=== PATIENT | female | born 1990 | race Caucasian/White ===

== ENCOUNTER 2024-11-18 02:09 | Emergency (ER) | payer SELFPAY ==
[2024-11-18 03:50] LABS: Absolute Lymphocytes (CBC) 1.1 K/uL (0.7-4.9); Hematocrit 40.5 % (36.0-45.0); Hemoglobin 13.8 g/dL (12.0-15.0); MCH 33.2 pg (27.0-35.0); MCHC 34.2 g/dL (32.0-36.0); MCV 97.0 fL (80-100); MPV 7.7 fL (7.6-11.3); Nucleated RBC Absolute Count 0.0 (0-0); Nucleated Red Blood Cells % 0.0 % (0-0); RBC Red Blood Cell Count 4.17 M/uL (3.86-4.86); White Blood Count 12.20 thou/uL (4.3-10.9)
[2024-11-18 04:01] LABS: PT Prothrombin Time 11.8 SECONDS (10-13.0); PTT, Activated Partial Thromb 26.0 SECONDS (27.2-37.4); Protime INR 1.05
[2024-11-18 04:11] LABS: ALT/SGPT 27 U/L (13-56); AST/SGOT 17 U/L (15-37); Albumin 4.2 g/dL (3.4-5.0); Albumin/Globulin Ratio 1.2 (1.1-1.8); Alkaline Phosphatase 55 U/L (45-117); Anion Gap 7.9 mEq/L (5.0-15.0); BUN Blood Urea Nitrogen 12 mg/dL (7-18); Bilirubin Indirect, Calculated 0.3 mg/dL (0.2-0.8); Globulin 3.5 g/dL (2.3-3.5); Glucose Level 111 mg/dL (74-106); Potassium 3.9 mEq/L (3.5-5.1)
--- NOTE | 2024-11-18 05:41 | EDPHYS ---
Physician Documentation [facility] Name: Jazmine Ibrahim Age: 34 yrs Sex: Female : 1990 Arrival Date: 11/18/2024 Time: 02:09 Bed 14 Private MD: ED Physician Rusty De REPORTING ANALYST: 11/18 02:58 LMP 11/13/2024, unknown ss12 Historical: - Allergies: 02:53 No Known Allergies; ss12 - Immunization history:: Adult Immunizations unknown. - Infectious Disease History:: Denies. - Social history:: Smoking status: Patient reports the use of cigarette tobacco products, unknown. ROS: 04:06 Constitutional: negative for fever. Cardiovascular: negative for chest pain. tt7 Respiratory: negative for shortness of breath. Abdomen/GI: negative for abdominal pain, nausea, vomiting, diarrhea. MS/Extremity: negative for injury and deformity. Skin: negative for rash. Neuro: negative for focal weakness. Exam: 04:21 Constitutional: vital signs reviewed, well appearing. Head/Face: normocephalic, tt7 atraumatic. Eyes: no conjunctival injection, anicteric sclerae, PERRL. ENT: mucus membranes moist. Neck: trachea midline, no JVD, no meningismus. Chest/axilla: normal chest wall appearance and motion, nontender, no crepitus. Cardiovascular: Tachycardic, regular rhythm, no murmurs, no rubs, no lower extremity edema. Respiratory: normal respiratory effort, no accessory muscle use, lungs CTAB. Abdomen/GI: Nondistended Back: normal ROM. Skin: warm, dry, intact, normal turgor, normal color, no rash. MS/ Extremity: normal ROM of extremities, no gross deformities. Neuro: alert and oriented with appropriate mental status, normal speech, follows commands, no focal neurologic deficits. 04:21 Psych: Behavior/mood is anxious, Affect is Normal. Oriented to person, place, time, Patient has no thoughts/intents to harm self or others. Memory is normal. Delusions/hallucinations are not present. Vital Signs: 02:12 BP 142 / 104; Pulse 119; Resp 22; Temp 97.9(TE); Pulse Ox 100% on R/A; ss12 03:00 BP 114 / 76; Pulse 76; Resp 17; Pulse Ox 99% on R/A; tb4 04:00 BP 120 / 87; Pulse 72; Resp 16; Pulse Ox 99% on R/A; Pain 0/10; tb4 05:00 BP 121 / 83; Pulse 80; Resp 18; Temp 98.4(O); Pulse Ox 98% on R/A; tb4 06:05 BP 111 / 80; Pulse 73; Resp 16; Temp 98.1(O); Pulse Ox 99% on R/A; Pain 0/10; tb4 04:00 Pain Scale: Adult tb4 06:05 Pain Scale: Adult tb4 MDM: 02:18 Medical Screening Exam initiated tt7 02:51 Differential Diagnosis Alcohol intoxication, hallucinogen intoxication, cocaine tt7 intoxication, psychosis. Data reviewed: vital signs, nurses notes, lab test result(s), EKG. ED course: I independently interpreted the patient's EKG performed on 12/09 at 246. On my interpretation, EKG demonstrates normal sinus rhythm, ventricular rate 86 bpm, normal axis, normal QRS interval, normal ST segments, no STEMI. 05:37 ED course: Laboratory studies are all reassuring, no acute findings requiring further tt7 evaluation, I reassessed the patient and discussed the results of the emergency department workup, her vital signs are stable, she is clinically sober, after completion of the patient's emergency department evaluation, I do not suspect a life-threatening or disabling process. Patient is medically stable and not in need of emergent medical intervention. I had a detailed discussion with the patient regarding the historical points, exam findings, emergency department evaluation, diagnostic results, and the discharge diagnosis. I instructed the patient on outpatient management of their condition. I discussed the need for outpatient follow-up with a primary care physician. I informed the patient on return precautions, including the need to return to the ED if symptoms do not improve, worsen, or if there are any questions or concerns that arise at home. The patient was discharged in stable condition. 11/18 02:19 Order name: Acetaminophen; Complete Time: 04:14 tt7 11/18 02:19 Order name: Basic Metabolic Panel; Complete Time: 04:14 tt7 11/18 02:19 Order name: CBC with Diff; Complete Time: 03:56 tt7 11/18 02:19 Order name: ETOH Level; Complete Time: 04:14 tt7 10/04 02:19 Order name: Hepatic Function; Complete Time: 04:14 tt7 11/18 02:19 Order name: PT-INR; Complete Time: 04:14 tt7 11/18 02:19 Order name: Ptt, Activated; Complete Time: 04:14 tt7 11/18 02:19 Order name: Test, Serum; Complete Time: 04:14 tt7 11/18 02:19 Order name: EKG; Complete Time: 02:20 tt7 11/18 02:19 Order name: EKG - Nurse/Tech; Complete Time: 03:33 tt7 11/18 02:19 Order name: IV Saline Lock; Complete Time: 06:26 tt7 11/18 02:19 Order name: Labs collected and sent; Complete Time: 06:26 tt7 11/18 02:19 Order name: Suicide Screening ([place]); Complete Time: 06:46 tt7 Administered Medications: 02:38 Drug: NS 0.9% IV 1000 ml IV at 1 bolus Per protocol; to be given as a bolus over 60 ha1 minutes Route: IV; Rate: 1 bolus; Site: right antecubital; 06:26 Follow up: Response: No adverse reaction; IV Status: Completed infusion tb4 Disposition Summary: 11/18/24 05:40 Discharge Ordered Notes: Location: Home tt7 Problem: new tt7 Symptoms: are resolved tt7 Condition: Stable tt7 Diagnosis - Hallucinogen abuse with intoxication tt7 - Other psychoactive substance abuse with intoxication tt7 Followup: tt7 - With: Emergency Department - When: As needed - Reason: Followup: tt7 - With: Private Physician - When: 1 - 2 days - Reason: Recheck today's complaints, Re-evaluation by your physician Discharge Instructions: - Discharge Summary Sheet tt7 - Illegal Drug Use Information, Adult tt7 Forms: - Medication Reconciliation Form tt7 - Antibiotic Education tt7 - Prescription Opioid Use tt7 - Patient Portal Instructions tt7 - Leadership Thank You Letter tt7 Addendum: 11/21/2024 09:37 Addendum: 34-year-old female presents emergency department for evaluation after she was t t7 found walking in the road, patient reports that she had ingested some psilocybin mushrooms and had a friend with her that was supposed to help supervise her and ensure that she wasn't acting strange, she went back to her house where she did a few lines of cocaine and then opened up a large bag of crack, she reports she became concerned because her dog might have eaten some of the crack cocaine and started acting ill, some acquaintances of hers that were at the house said that she was acting strange and she became paranoid and was wondering why they do not care about her dog, she then left her house and was found walking in the street intoxicated. Co-signature as Attending Physician, Rusty De DO. Signatures: Dispatcher [employer] EDMS Yakelin Mccrary, RN RN ha1 Kristi Berry RN RN ss12 Rusty De DO DO tt7 Lily De La Garza RN tb4 Corrections: (The following items were deleted from the chart) 11/18 02:20 02:19 ACETAMINOPHEN+C.LAB.BRZ ordered. EDMS EDMS 02:20 02:19 BASIC METABOLIC PANEL+C.LAB.BRZ ordered. EDMS EDMS 02:20 02:19 CBC+H.LAB.BRZ ordered. EDMS EDMS 02:20 02:19 ETHANOL+C.LAB.BRZ ordered. EDMS EDMS 02:20 02:19 HEPATIC FUNCTION+C.LAB.BRZ ordered. EDMS EDMS 02:20 02:19 PROTIME (+INR)+COAG.LAB.BRZ ordered. EDMS EDMS 02:20 02:19 PTT, ACTIVATED+COAG.LAB.BRZ ordered. EDMS EDMS 02:20 02:19 SALICYLATE+C.LAB.BRZ ordered. EDMS EDMS 02:20 02:19 URINE DRUG SCREEN+UC.LAB.BRZ ordered. EDMS EDMS 02:20 02:19 TEST, SERUM+SC.LAB.BRZ ordered. EDMS EDMS
--- NOTE | 2024-11-18 05:41 | ER ---
Nurse's Notes [facility] Name: Jazmine Ibrahim Age: 34 yrs Sex: Female : 1990 Arrival Date: 11/18/2024 Time: 02:09 Bed 14 Private MD: Diagnosis: Hallucinogen abuse with intoxication;Other psychoactive substance abuse with intoxication Presentation: 11/18 02:12 Chief complaint: EMS states: Pt brought to ER by EMS and PD. pt was walking on the [facility] [address] saying "pop frank" pt mentioning no name and there is no ID on her. Coronavirus screen: Client denies travel out of the [place] in the last 14 days. At this time, the client does not indicate any symptoms associated with coronavirus-19. Ebola Screen: Patient negative for fever greater than or equal to 101.5 degrees Fahrenheit, and additional compatible Ebola Virus Disease symptoms Patient denies exposure to infectious person. Patient denies travel to an Ebola-affected area in the 21 days before illness onset. Initial Sepsis Screen: Does the patient meet any 2 criteria? No. Patient's initial sepsis screen is negative. Does the patient have a suspected source of infection? No. Patient's initial sepsis screen is negative. Risk Assessment: Do you want to hurt yourself or someone else? Patient reports no desire to harm self or others. Onset of symptoms is unknown. 02:12 Method Of Arrival: EMS: [facility] 02:12 Acuity: SELINA 2 12 Triage Assessment: 02:12 General: Appears in no apparent distress. Behavior is cooperative, crying. Pain: Denies [facility] pain. EENT: No deficits noted. No signs and/or symptoms were reported regarding the EENT system. Neuro: Level of Consciousness is awake, alert, obeys commands, Oriented to person, place, time, situation. Cardiovascular: No deficits noted. Reports None Patient's skin is warm and dry. Respiratory: No deficits noted. Airway is patent Respiratory effort is even, unlabored, Respiratory pattern is regular, symmetrical. GI: No deficits noted. No signs and/or symptoms were reported involving the gastrointestinal system. : No deficits noted. No signs and/or symptoms were reported regarding the genitourinary system. Derm: No deficits noted. No signs and/or symptoms reported regarding the dermatologic system. Wound noted Other: dry blood noted on her right great toe. Musculoskeletal: No deficits noted. No signs and/or symptoms reported regarding the musculoskeletal system. RADIOLOGICAL METALLURGIST: 02:58 LMP 11/13/2024, unknown ss12 Historical: - Allergies: 02:53 No Known Allergies; ss12 - Immunization history:: Adult Immunizations unknown. - Infectious Disease History:: Denies. - Social history:: Smoking status: Patient reports the use of cigarette tobacco products, unknown. Screenin:[facility] ED Fall Risk Assessment (Adult) History of falling in the last 3 months, ss12 including since admission No falls in past 3 months (0 pts) Confusion or Disorientation No (0 pts) Intoxicated or Sedated No (0 pts) Impaired Gait No (0 pts) Mobility Assist Device Used No (0 pt) Altered Elimination No (0 pt) Score/Fall Risk Level 0 - 2 = Low Risk Oriented to surroundings, Maintained a safe environment, Educated pt \\T\\ family on fall prevention, incl call for assistance when getting out of bed, Assessed \\T\\ reinforced patient's understanding of fall precautions, Provided non-skid footwear. Abuse screen: Denies threats or abuse. Denies injuries from another. Nutritional screening: No deficits noted. Tuberculosis screening: No symptoms or risk factors identified. Assessment: 03:04 Reassessment: Patient is alert, oriented x 3, equal unlabored respirations, skin tb4 warm/dry/pink. Patient states symptoms have improved. General: Appears in no apparent distress. Behavior is calm, cooperative. Pain: Denies pain. Neuro: Level of Consciousness is awake, alert, obeys commands, Oriented to person, place, Moves all extremities. Full function Gait is steady, Speech is normal. Cardiovascular: No deficits noted. Respiratory: Airway is patent Respiratory effort is even, unlabored, Respiratory pattern is regular, symmetrical. GI: No deficits noted. No signs and/or symptoms were reported involving the gastrointestinal system. : No deficits noted. No signs and/or symptoms were reported regarding the genitourinary system. EENT: No deficits noted. Musculoskeletal: No deficits noted. No signs and/or symptoms reported regarding the musculoskeletal system. Circulation, motion, and sensation intact. Range of motion: intact in all extremities. Psych: 06:45 [place] Suicide Severity Screening: In the past month, have you wished you were tb4 or wished you could go to sleep and not wake up? Patient responds "No." "In the past month, have you actually had any thoughts of killing yourself?" Patient responds "no." "In your lifetime, have you ever done anything, started to do anything, or prepared to do anything to end your life?" Patient responds "no.". Subjective: Patient's mood is sad, Delusions are denied, Hallucinations are denied. Objective: Patient is cooperative, Speech is normal, Affect is appropriate. Interventions: Searched person for dangerous items. Patient reassessed during use of restraints. Patient is physically safe. Patient's cardiac status is stable. Patient's respirations are even and unlabored. Patient has good circulation in all extremities as indicated by capillary refill < 3 seconds. Patient's ROM assessed and is intact. Patient nutrition and hydration needs will continue to be monitored and addressed. Patient hygiene and elimination needs met. Patient assessed for signs of distress. Patient remains reasonably comfortable at this time. Safety Checks: Personal items have not been removed. Door is open. No visitors are present at this time. Pt denies substance abuse. Commitment: Patient will be a voluntary commitment. Vital Signs: 02:12 BP 142 / 104; Pulse 119; Resp 22; Temp 97.9(TE); Pulse Ox 100% on R/A; ss12 03:00 BP 114 / 76; Pulse 76; Resp 17; Pulse Ox 99% on R/A; tb4 04:00 BP 120 / 87; Pulse 72; Resp 16; Pulse Ox 99% on R/A; Pain 0/10; tb4 05:00 BP 121 / 83; Pulse 80; Resp 18; Temp 98.4(O); Pulse Ox 98% on R/A; tb4 06:05 BP 111 / 80; Pulse 73; Resp 16; Temp 98.1(O); Pulse Ox 99% on R/A; Pain 0/10; tb4 04:00 Pain Scale: Adult tb4 06:05 Pain Scale: Adult tb4 ED Course: 02:12 Patient arrived in ED. vk 02:18 Rusty De DO is Attending Physician. tt7 02:30 Kristi Berry, RN is Primary Nurse. ss12 02:39 Inserted saline lock: 20 gauge in right antecubital area, using aseptic technique. ha1 Blood collected. Flushed with 10 mL NS. 02:53 Triage completed. ss12 03:00 No provider procedures requiring assistance completed. ss12 03:00 Arm band placed on left wrist. ss12 03:00 Patient has correct armband on for positive identification. Provided Education on: plan ss12 of care discussed with the patient. 07:36 IV discontinued, bleeding controlled, No redness/swelling at site. os Administered Medications: 02:38 Drug: NS 0.9% IV 1000 ml IV at 1 bolus Per protocol; to be given as a bolus over 60 ha1 minutes Route: IV; Rate: 1 bolus; Site: right antecubital; 06:26 Follow up: Response: No adverse reaction; IV Status: Completed infusion tb4 Medication: 03:00 VIS not applicable for this client. ss12 Outcome: 05:40 Discharge ordered by . tt7 07:34 Discharged to home ambulatory, os 07:34 Condition: improved 07:34 Discharge instructions given to patient, Instructed on discharge instructions, follow up and referral plans. no drinking with medication, Demonstrated understanding of instructions, follow-up care, 07:36 Patient left the ED. os Signatures: Yakelin Mccrary, RN RN ha1 Feliberto Gaines, RN RN os Nelly Givens Terri RN RN tb4 Kristi Berry RN RN ss12 Rusty De DO DO tt7
[2024-11-18 07:49] VITALS: BP 111/80; TEMP 98.1; O2SAT 99
== END 2024-11-18 07:36 | disposition home or self-care (01) ==
LOC: EDBD 02:09 → ER 02:09
DX: F16.129 Hallucinogen abuse with intoxication, unspecified (principal); F19.129 Other psychoactive substance abuse with intoxication, unspecified
CPT/HCPCS: 36415; 80048; 80076; 80143; 82077; 84703; 85025; 85610; 85730; 93005; 96360; 96361; 99285